=== PATIENT | female | born 1970 | race Caucasian/White ===

== ENCOUNTER → 2017-08-27 | Outpatient (CLI) | payer BC ==
--- NOTE | 2017-08-29 11:10 | MM ---
Reason for exam: screening (asymptomatic). Last mammogram was performed 2 years and 4 months ago. History: Taking hormonal contraceptives for 7 years. Physical Findings: A clinical breast exam by your physician is recommended on an annual basis and results should be correlated with mammographic findings. MG Screening Mammo w CAD Bilateral CC and MLO view(s) were taken. Prior study comparison: May 11, 2015, right breast MG work up mamm w CAD RT. April 27, 2015, bilateral MG screening mammo w CAD. The breast tissue is extremely dense which could obscure a lesion on mammography. No significant changes when compared with prior studies. ASSESSMENT: Negative, BI-RAD 1 RECOMMENDATION: Routine screening mammogram of both breasts in 1 year.
== END | disposition home or self-care (01) ==
LOC: RADMAMWWP 08:12
PROVIDERS: ATTEND Obstetrics & Gynecology
DX: Z12.31 Encounter for screening mammogram for malignant neoplasm of breast (principal)

== ENCOUNTER → 2018-10-01 | Outpatient (CLI) | payer BC ==
--- NOTE | 2018-10-02 10:46 | MM ---
Reason for exam: screening (asymptomatic). Last mammogram was performed 1 year and 1 month ago. History: Taking hormonal contraceptives for 7 years. Physical Findings: A clinical breast exam by your physician is recommended on an annual basis and results should be correlated with mammographic findings. MG Screening Mammo w CAD Bilateral CC and MLO view(s) were taken. Prior study comparison: August 27, 2017, bilateral MG screening mammo w CAD. May 11, 2015, right breast MG work up mamm w CAD RT. The breast tissue is extremely dense which could obscure a lesion on mammography. Finding: There is a 7 mm obscured oval mass in the questionable upper quadrant, anterior position of the left breast. New finding since August 27, 2017 and May 11, 2015. ASSESSMENT: Incomplete: need additional imaging evaluation, BI-RAD 0 RECOMMENDATION: Special view mammogram of the left breast. If lesion persists on supplemental views, image directed ultrasound is recommended. [facility] will attempt to contact patient to return for supplemental views and ultrasound if indicated.
== END ==
LOC: RADMAMWWP 15:46
PROVIDERS: ATTEND Obstetrics & Gynecology
DX: Z12.31 Encounter for screening mammogram for malignant neoplasm of breast (principal)
CPT/HCPCS: 77067

== ENCOUNTER → 2018-11-09 | Outpatient (CLI) | payer BC ==
--- NOTE | 2018-11-09 14:41 | MM ---
Reason for exam: additional evaluation requested from abnormal screening. Last mammogram was performed 1 month ago. History: Took hormonal contraceptives for 7 years. Physical Findings: Nurse did not find any significant physical abnormalities on exam. MG 3D Work Up W/Cad LT Spot compression CC, spot compression MLO, and LM view(s) were taken of the left breast. Prior study comparison: October 01, 2018, bilateral MG screening mammo w CAD. August 27, 2017, bilateral MG screening mammo w CAD. Finding: There is a 7 mm obscured round mass in the upper quadrant, anterior position of the left breast does not go completely away on additional views. These results were verbally communicated with the patient and result sheet given to the patient on 11/09/18. ASSESSMENT: Incomplete: need additional imaging evaluation, BI-RAD 0 RECOMMENDATION: Ultrasound of the left breast.
--- NOTE | 2018-11-09 14:43 | USB ---
Reason for exam: additional evaluation requested from abnormal screening. History: Took hormonal contraceptives for 7 years. US Breast Workup Limited LT Left limited breast ultrasound including focal area of concern, retroareolar and axilla demonstrates a 0.9 x 1.0 x 0.6cm oval, cystic cluster at 12 o'clock, a 0.8 x 1.1 x 0.6cm oval, cystic lesion at 1 o'clock and a 1.6 x 0.8 x 0.5cm oval node at the axilla. Overall fibrocystic. These results were verbally communicated with the patient and result sheet given to the patient on 11/09/18. ASSESSMENT: Benign, BI-RAD 2 RECOMMENDATION: Return to routine screening mammogram schedule for both breasts.
== END ==
LOC: RADMAMWWP 13:20
PROVIDERS: ATTEND Obstetrics & Gynecology
DX: R92.8 Other abnormal and inconclusive findings on diagnostic imaging of breast (principal)
CPT/HCPCS: 77061; 77065

== ENCOUNTER → 2019-11-15 | Outpatient (CLI) | payer BC ==
--- NOTE | 2019-11-16 10:20 | MM ---
Reason for exam: screening (asymptomatic). Last mammogram was performed 1 year ago. History: Took hormonal contraceptives for 7 years. Physical Findings: A clinical breast exam by your physician is recommended on an annual basis and results should be correlated with mammographic findings. MG 3D Screening Mammo W/Cad Bilateral CC and MLO view(s) were taken. Prior study comparison: November 09, 2018, left breast MG 3d work up w/cad LT. October 01, 2018, bilateral MG screening mammo w CAD. The breast tissue is extremely dense which could obscure a lesion on mammography. There are few benign appearing round calcifications in the left breast. There is no discrete abnormality. ASSESSMENT: Negative, BI-RAD 1 RECOMMENDATION: Routine screening mammogram of both breasts in 1 year. Consider bilateral ultrasound surveillance with patients with extreme dense tissue.
== END | disposition home or self-care (01) ==
LOC: RADMAMWWP 16:45
PROVIDERS: ATTEND Obstetrics & Gynecology
DX: Z12.31 Encounter for screening mammogram for malignant neoplasm of breast (principal)
CPT/HCPCS: 77063; 77067

== ENCOUNTER → 2021-08-06 | Outpatient (CLI) | payer BC ==
--- NOTE | 2021-08-06 19:46 | XR ---
EXAMINATION TYPE: XR lumbosacral spine min 4V DATE OF EXAM: 08/06/2021 CLINICAL HISTORY: Chronic low back pain. TECHNIQUE: Frontal, lateral, and oblique images of the lumbar spine are obtained. COMPARISON: None FINDINGS: There are 5 lumbar type vertebral bodies identified. The lumbar spine shows dextroconvex scoliosis centered at L3-L4 level. There is loss of normal lumbar lordosis lateral images. Vertebral body heights and disk space heights are within normal limits. Mild multilevel anterior and lateral s purring. The oblique images appear within normal limits. The overlying soft tissue appears unremarka ble. IMPRESSION: As above.
== END | disposition home or self-care (01) ==
LOC: RADXRYALE 16:13
PROVIDERS: ATTEND Physician Assistant Medical
DX: M41.86 Other forms of scoliosis, lumbar region (principal); M46.09 Spinal enthesopathy, multiple sites in spine
CPT/HCPCS: 72110

== ENCOUNTER → 2021-12-20 | Outpatient (CLI) | payer BC ==
--- NOTE | 2021-12-20 12:00 | BD ---
EXAMINATION TYPE: Axial Bone Density DATE OF EXAM: 12/20/2021 COMPARISON: NONE CLINICAL HISTORY: 51 years year old Female. ICD-10 CODE: Z78.0 POST MENOPAUSAL WITHOUT HRT Height: 67 Weight: 155 FRAX RISK QUESTIONS: Alcohol (3 or more units per day): NO Family History (Parent hip fracture): NO Glucocorticoids (More than 3mos): NO (Ex: prednisone, prednisolone, methylprednisolone, dexamethasone, and hydrocortisone). History of Fracture in Adulthood: NO Secondary Osteoporosis: 1. Type 1 Diabetes: NO 2. Hyperthyroidism: NO 3. Menopause before 45: NO 4. Malnutrition: NO 5. Chronic liver disease: NO Rheumatoid Arthritis: NO Current Tobacco Use: NO RISK FACTORS HISTORY OF: Family History of Osteoporosis: YES Active: YES Postmenopausal woman: YES MEDICATIONS: Additional Medications: CALCIUM, VIT D Additional History: EXAM MEASUREMENTS: Bone mineral densitometry was performed using the [facility]. Bone mineral density as measured about the Lumbar spine is: ----- L1-L4(G/cm2): 1.178 T Score Values are as follows: ----- L1: -0.3 ----- L2: 0.0 ----- L3: 0.3 ----- L4: -0.2 ----- L1-L4: 0.0 Bone mineral density is baseline Bone mineral density about the R hip (g/cm2): 0.941 Bone mineral density about the L hip (g/cm2): 0.885 T Score values are as follows: -----R Neck: -1.2 -----L Neck: -1.3 -----R Total: -0.5 -----L Total: -0.8 Bone mineral density is a baseline FRAX%s: The graph provided illustrates a 4.3% chance for a major osteoporotic fx and a 0.3% chance fo r the hips probability for fx in 10 years time. IMPRESSION: Osteopenia (T Score between -2.5 and -1). There is slightly increased risk of fracture and the patient may be considered for treatment. Re-Screen 2-5 years. NOTE: T-SCORE=SD OF THE YOUNG ADULT MEAN.
--- NOTE | 2021-12-21 14:28 | MM ---
Reason for exam: screening (asymptomatic). Last mammogram was performed 2 years and 1 month ago. History: Patient is postmenopausal. Took hormonal contraceptives for 7 years. Physical Findings: A clinical breast exam by your physician is recommended on an annual basis and results should be correlated with mammographic findings. MG 3D Screening Mammo W/Cad Bilateral CC and MLO view(s) were taken. Prior study comparison: November 15, 2019, bilateral MG 3d screening mammo w/cad. October 01, 2018, bilateral MG screening mammo w CAD. August 27, 2017, bilateral MG screening mammo w CAD. The breast tissue is heterogeneously dense. This may lower the sensitivity of mammography. No significant changes when compared with prior studies. ASSESSMENT: Benign, BI-RAD 2 RECOMMENDATION: Routine screening mammogram of both breasts in 1 year.
== END | disposition home or self-care (01) ==
LOC: RADMAMWWP 08:19
PROVIDERS: ATTEND Obstetrics & Gynecology
DX: Z12.31 Encounter for screening mammogram for malignant neoplasm of breast (principal); M85.89 Other specified disorders of bone density and structure, multiple sites; Z78.0 Asymptomatic menopausal state
CPT/HCPCS: 77063; 77067; 77080

== ENCOUNTER → 2022-11-27 | Outpatient (CLI) | payer BC ==
--- NOTE | 2022-11-27 12:38 | XR ---
EXAMINATION TYPE: XR lumbosacral spine min 4V DATE OF EXAM: 11/27/2022 COMPARISON: 08/06/2021 HISTORY: Low back pain TECHNIQUE: 5 view lumbar spine FINDINGS: Disc space narrowing is present L4-5 and L5-S1. Mild diffuse disc space narrowing is presen t within the remaining lumbar spine. No spondylolytic defects are evident. Vertebral body heights are preserved. There are 5 lumbar-type vertebral bodies. The pedicles are intact. IMPRESSION: 1. Degenerative disc changes lower lumbar spine, present previously
--- NOTE | 2022-11-27 12:41 | XR ---
EXAMINATION TYPE: XR abdomen 2V DATE OF EXAM: 11/27/2022 COMPARISON: None INDICATION: Low back pain, constipation TECHNIQUE: Single view abdomen frontal and upright views FINDINGS: There is a normal bowel gas pattern. Mild fecal retention is present throughout the colon Psoas margins are normal. No organomegaly is present. No air-fluid levels are evident IMPRESSION: 1. Moderate fecal retention
== END | disposition home or self-care (01) ==
LOC: RADXRYALE 11:51
PROVIDERS: ATTEND Physician Assistant Medical
DX: M51.36 Other intervertebral disc degeneration, lumbar region (principal); R10.817 Generalized abdominal tenderness
CPT/HCPCS: 72110; 74019

== ENCOUNTER → 2024-07-19 | Outpatient (CLI) | payer BC ==
--- NOTE | 2024-07-21 10:09 | MM ---
Reason for Exam: Screening (asymptomatic). Last mammogram was performed 1 year(s) and 2 month(s) ago. Patient History: Menarche at age 16. First Full-Term at age 25. Postmenopausal. Hormonal Contraceptives for 7 years until age 31. Risk Values: Sherley 5 year model risk: 0.9%. NCI Lifetime model risk: 7.1%. Prior Study Comparison: 11/15/2019 Bilateral Screening Mammogram, [facility]. 12/20/2021 Bilateral Screening Mammogram, [facility]. 05/28/2023 Bilateral MG 3D screening mammo w/cad, [facility]. Tissue Density: The breasts are extremely dense, which lowers the sensitivity of mammography. Findings: Analyzed By CAD. There is no suspicious group of microcalcifications or new suspicious mass in either breast. Overall Assessment: Benign, BI-RAD 2 Management: Screening Mammogram of both breasts in 1 year. . Patient should continue monthly self-breast exams. A clinical breast exam by your physician is recommended on an annual basis. This exam should not preclude additional follow-up of suspicious palpable abnormalities. Note on Sherley scores and lifetime risk: 1. A Sherley score greater than 3% is considered moderate risk. If this is the case, consider specialist referral to assess eligibility for a risk reducing agent. 2. If overall lifetime risk for the development of breast cancer is 20% or higher, the patient may qualify for future screening with alternating mammogram and breast MRI. [facility], , 07/21/2024 10:06 AM. Electronically signed and approved by: Julio Carrillo M.D. [facility]
== END | disposition home or self-care (01) ==
LOC: RADMAMWWP 12:45
PROVIDERS: ATTEND Family Medicine
DX: Z12.31 Encounter for screening mammogram for malignant neoplasm of breast (principal); Z78.0 Asymptomatic menopausal state; R92.343 Mammographic extreme density, bilateral breasts
CPT/HCPCS: 77063; 77067